=== PATIENT | male | born 1980 | race Hispanic/Latino ===

== ENCOUNTER 2018-10-13 18:18 | Emergency (ER) | payer SELFPAY ==
[~2018-10-13 18:18] MED LIST: Iopamidol 370 76% 100 ML VIAL ONE
[2018-10-13] MEDS ORDERED: Ondansetron PF 4 MG/2 ML Vial ONE (18:36)
[2018-10-13 18:48] LABS: #Basophils 0.1 thou/uL (0.0-0.2); #Lymphocytes 1.2 thou/uL (1.20-3.40); #Monocytes 1.2 thou/uL (0.11-0.59); #Neutrophils 14.9 thou/uL (1.40-6.50); %Basophils 0.5 % (0.0-1.0); %Eosinophils 0.1 % (0.0-10.0); %Lymphocytes 6.8 % (21.0-51.0); %Monocytes 6.9 % (0.0-10.0); %Neutrophils 85.8 % (42.0-75.0); Hemoglobin 18.6 g/dL (14.0-18.0); Mean Corpuscular HGB CONC 35.1 g/dL (32.0-36.0); Mean Corpuscular Hemoglobin 30.4 pg (27.0-31.0); Mean Corpuscular Volume 86.7 fL (78.0-98.0); Mean Platelet Volume 8.4 fL (7.4-10.4); Platelet Count 278 thou/uL (130-400); RBC Distribution Width 12.5 % (11.5-14.5); White Blood Cell (WBC) Count 17.4 thou/uL (4.8-10.8)
[2018-10-13 19:06] LABS: ALT (SGPT) 27 U/L (8-55); AST (SGOT) 20 U/L (5-34); Albumin 5.3 g/dL (3.5-5.0); Alkaline Phosphatase 82 U/L (40-150); Anion Gap 22 mmol/L (10-20); BUN (Urea Nitrogen) 14 mg/dL (8.9-20.6); Bilirubin, Total 0.8 mg/dL (0.2-1.2); Calc. Creatinine Clearance 0 mL/min (70-130); Calcium 10.7 mg/dL (7.8-10.44); Carbon Dioxide 25 mmol/L (22-29); Chloride 98 mmol/L (98-107); Estimated GFR-MDRD 61; Globulin 3.9 g/dL (2.4-3.5); Glucose 142 mg/dL (70-105); Potassium 3.4 mmol/L (3.5-5.1); Protein, Total 9.2 g/dL (6.0-8.3); Sodium 142 mmol/L (136-145)
[2018-10-13] MEDS ORDERED: Pantoprazole 40 MG VIAL ONE (19:41)
[2018-10-13 21:03] LABS: Bilirubin Negative (Negative); Blood, Urine Negative (Negative); Clarity CLEAR (Clear); Glucose, Urine (Dipstick) Negative (Negative); Leukocyte Negative (Negative); Nitrite Negative (Negative); Protein, Urine (Dipstick) 30 mg/dL (Neg-Trace); pH, Urine 8.5 (5.0-9.0)
[2018-10-13 21:04] LABS: Bacteria/HPF None Seen HPF (None Seen); Hyaline Casts/LPF 7-10 HYALINE CAST LPF (0-3 Hyaline); Pathc Cast-AUWi Flag 0.81 (0-2.49); RBC/HPF 0-3 HPF (0-3); Squamous Epithelial 0-3 HPF (0-3); WBC/HPF 0-3 HPF (0-3)
[2018-10-13 21:06] LABS: Specific Gravity, Urine Greater than 1.060 (1.002-1.036)
[2018-10-13 21:13] LABS: Amphetamine Detected (NotDetected); Barbiturates Screen Not Detected (NotDetected); Benzodiazepine Screen Not Detected (NotDetected); Cocaine Metabolite Screen Detected (NotDetected); Medtox Control Line Valid? VALID (VALID); Medtox Reader # READER 4; Methadone Not Detected (NotDetected); Methamphetamine Detected (NotDetected); Opiate Screen Not Detected (NotDetected); Oxycodone Screen Not Detected (NotDetected); Phencyclidine (PCP) Not Detected (NotDetected); THC/Cannabinoid Screen Not Detected (NotDetected); Tricyclic Screen Not Detected (NotDetected)
--- NOTE | 2018-10-14 09:31 | CT ---
CT CHEST 10/13/18 HISTORY: Sore throat, epigastric pain, nausea. TECHNIQUE: Axial CT imaging at 5 mm intervals from the thoracic inlet through the upper abdomen with IV contrast . Coronal reformatted imaging obtained. FINDINGS: No axillary, hilar, or mediastinal lymphadenopathy is seen. The imaged upper abdomen appears unremark able. There is a focal area of severe/marked wall thickening of the thoracic esophagus. This involves a 7-8 cm segment of the thoracic esophagus from the axial level of the gautam through the axial leve l of the distal esophagus just proximal to the gastroesophageal junction. There is no extraluminal gas. No significant pericardial, pleural or mediastinal fluid. There is prob able mild fluid adjacent to the inflamed segment of the mid thoracic and distal thoracic esophagus. There is no pneumothorax. The lung parenchyma appears grossly unremarkable. No acute osseous abnormality is seen. IMPRESSION: Severe area of esophageal wall thickening from the axial level of the gautam through the axial level of the distal esophagus just proximal to the gastroesophageal junction. Etiology is uncertain. Findin gs suggests inflammatory/infectious process of the esophagus. Malignancy cannot be excluded. GI consu ltation is advised. Recommend direct visualization via endoscopy when the patient is able. Code T POS: WALT
== END 2018-10-13 21:26 | disposition home or self-care (01) ==
LOC: ERS 18:18
DX: K20.9 Esophagitis, unspecified (principal); F17.200 Nicotine dependence, unspecified, uncomplicated; F19.10 Other psychoactive substance abuse, uncomplicated
CPT/HCPCS: 36415; 71260; 80053; 80306; 80307; 81003; 81015; 85025; 96361; 96374; 96375; C9113; J2405; Q9967

== ENCOUNTER 2018-12-05 15:19 | Emergency (ER) | payer SELFPAY ==
[2018-12-05 16:22] LABS: #Lymphocytes 1.2 thou/uL (1.20-3.40); #Monocytes 0.5 thou/uL (0.11-0.59); #Neutrophils 3.6 thou/uL (1.40-6.50); %Basophils 0.7 % (0.0-1.0); %Eosinophils 0.8 % (0.0-10.0); %Monocytes 9.8 % (0.0-10.0); %Neutrophils 66.7 % (42.0-75.0); Hemoglobin 15.8 g/dL (14.0-18.0); Mean Corpuscular HGB CONC 34.4 g/dL (32.0-36.0); Mean Corpuscular Hemoglobin 30.5 pg (27.0-31.0); Mean Corpuscular Volume 88.6 fL (78.0-98.0); Mean Platelet Volume 8.3 fL (7.4-10.4); Platelet Count 189 thou/uL (130-400); RBC Distribution Width 12.6 % (11.5-14.5); Red Blood Cell (RBC) Count 5.19 mill/uL (4.70-6.10); White Blood Cell (WBC) Count 5.3 thou/uL (4.8-10.8)
--- NOTE | 2018-12-05 16:31 | CT ---
Exam: Abdomen CT without contrast Pelvic CT without contrast HISTORY: Left costovertebral angle tenderness. COMPARISON: 02/11/2013 FINDINGS: Abdomen CT: Lung bases:Clear Heart size: Normal size. No significant pericardial fluid Aorta: Normal caliber Solid organs: Limited evaluation due to lack of IV contrast menstruation. Grossly no solid organ abno rmality Lymph nodes: No gastrohepatic, retrocrural or periportal lymphadenopathy Gallbladder: No evidence of cholelithiasis or cholecystitis Mesentery: No mass, lymphadenopathy, free air or free fluid Kidneys: Bilaterally, no hydronephrosis, nephrolithiasis or perinephric fat stranding. Bilateral uret ers have a normal caliber. No hydroureter, periureteral fat stranding or ureterolithiasis. Alimentary canal: Limited evaluation due to lack of oral contrast. No evidence of bowel obstruction. Ileocecal junction is normal. Hyperdense material in a normal caliber appendix, compatible with appendicoliths. No evidence of appendicitis. Fecal material in a nondistended, nondilated colon. Occa sional diverticulum sigmoid colon. No definite diverticulitis CT PELVIS: No mass, adenopathy, free air or free fluid. Urinary bladder: Unremarkable. Osseous structures: No lytic or blastic lesions. Stable spondylolisthesis and spondylolysis at the L5 -S1 level. IMPRESSION: 1. Bilaterally no obstructive uropathy. 2. Normal caliber appendix.
[2018-12-05] MEDS ORDERED: Ondansetron PF 4 MG/2 ML Vial ONE (16:36)
[2018-12-05] MEDS ORDERED: Ketorolac Tromethamine 30 MG/ML VIAL ONE (16:36)
[2018-12-05 16:46] LABS: ALT (SGPT) 25 U/L (8-55); AST (SGOT) 20 U/L (5-34); Albumin 4.6 g/dL (3.5-5.0); Alkaline Phosphatase 66 U/L (40-150); Anion Gap 13 mmol/L (10-20); BUN (Urea Nitrogen) 12 mg/dL (8.9-20.6); Bilirubin, Total 0.3 mg/dL (0.2-1.2); Calc. Creatinine Clearance 0 mL/min (70-130); Calcium 9.8 mg/dL (7.8-10.44); Carbon Dioxide 29 mmol/L (22-29); Chloride 104 mmol/L (98-107); Estimated GFR-MDRD 81; Globulin 3.4 g/dL (2.4-3.5); Glucose 96 mg/dL (70-105); Sodium 142 mmol/L (136-145)
[2018-12-05 17:22] LABS: Bilirubin Negative (Negative); Blood, Urine Negative (Negative); Clarity CLEAR (Clear); Glucose, Urine (Dipstick) Negative (Negative); Leukocyte Negative (Negative); Nitrite Negative (Negative); Protein, Urine (Dipstick) Trace mg/dL (Neg-Trace); Specific Gravity, Urine 1.028 (1.002-1.036)
== END 2018-12-05 18:13 | disposition home or self-care (01) ==
LOC: ERS 15:19
DX: K92.2 Gastrointestinal hemorrhage, unspecified (principal); M54.5 Low back pain; F17.210 Nicotine dependence, cigarettes, uncomplicated
CPT/HCPCS: 36415; 74176; 80053; 81003; 85025; 86850; 86900; 86901; 94760; 96374; 96375; J1885; J2405

== ENCOUNTER 2019-11-26 18:22 | Emergency (ER) | payer SELFPAY ==
[2019-11-26] MEDS ORDERED: Acetaminophen 500 MG TAB ONE (19:09)
[2019-11-26] MEDS ORDERED: Dexamethasone 4 MG TAB ONE (19:46)
== END 2019-11-26 19:52 | disposition home or self-care (01) ==
LOC: ERS 18:22
DX: J02.9 Acute pharyngitis, unspecified (principal); F17.210 Nicotine dependence, cigarettes, uncomplicated
CPT/HCPCS: 87081; 87430; 99283; J8540

== ENCOUNTER 2020-02-15 20:00 | Emergency (ER) | payer SELFPAY ==
[~2020-02-15 20:00] MED LIST changes: -Iopamidol 370 76% 100 ML VIAL ONE; +Iopamidol-370 76% 500 ML 1 ML ONE
[2020-02-15] MEDS ORDERED: Mag-Al 1200 mg/1200 mg/30 ML UDCUP ONE (20:14)
[2020-02-15] MEDS ORDERED: Lidocaine Viscous Sol 2% 15 ml UD Cup ONE (20:14)
[2020-02-15] MEDS ORDERED: Ondansetron PF 4 MG/2 ML Vial ONE (20:14)
[2020-02-15 20:33] LABS: #Lymphocytes 1.1 thou/uL (1.20-3.40); #Monocytes 1.1 thou/uL (0.11-0.59); #Neutrophils 11.8 thou/uL (1.40-6.50); %Basophils 0.1 % (0.0-1.0); %Eosinophils 0.1 % (0.0-10.0); %Lymphocytes 7.8 % (21.0-51.0); %Monocytes 7.6 % (0.0-10.0); %Neutrophils 84.4 % (42.0-75.0); Mean Corpuscular HGB CONC 34.8 g/dL (32.0-36.0); Mean Corpuscular Hemoglobin 30.6 pg (27.0-31.0); Mean Platelet Volume 8.6 fL (7.4-10.4); Platelet Count 230 thou/uL (130-400); RBC Distribution Width 12.8 % (11.5-14.5); Red Blood Cell (RBC) Count 5.53 mill/uL (4.70-6.10)
[2020-02-15 20:55] LABS: Albumin 5.1 g/dL (3.5-5.0); Alkaline Phosphatase 70 U/L (40-110); Anion Gap 16 mmol/L (10-20); BUN (Urea Nitrogen) 20 mg/dL (8.9-20.6); Bilirubin, Total 0.9 mg/dL (0.2-1.2); Calc. Creatinine Clearance 0 mL/min (70-130); Carbon Dioxide 24 mmol/L (22-29); Chloride 103 mmol/L (98-107); Estimated GFR-MDRD 68; Globulin 3.8 g/dL (2.4-3.5); Glucose 112 mg/dL (70-105); Potassium 3.7 mmol/L (3.5-5.1); Protein, Total 8.9 g/dL (6.0-8.3); Sodium 139 mmol/L (136-145)
[2020-02-15 20:56] LABS: ALT (SGPT) 28 U/L (8-55); AST (SGOT) 29 U/L (5-34); Lipase 13 U/L (8-78)
--- NOTE | 2020-02-15 21:36 | CT ---
CT abdomen and pelvis with IV contrast HISTORY: Abdomen pain. Vomiting. COMPARISON: 12/05/2018. FINDINGS: Lung bases are clear. The liver, spleen, kidneys, adrenal glands, and pancreas have a vladimir l CT appearance. No enlarged lymph nodes or free fluid. No evidence of bowel obstruction or inflammation. Incidental note of bilateral spondylolysis at the lumbosacral junction with grade 1 spondylolisthesis . IMPRESSION : No acute abnormalities are demonstrated.
[2020-02-15 21:41] LABS: Bilirubin Negative (Negative); Blood, Urine Negative (Negative); Clarity Clear (Clear); Glucose, Urine (Dipstick) Normal (Negative); Ketone, Urine 40 mg/dL (Negative); Leukocyte Negative Leu/uL (Negative); Mucous/LPF Rare LPF (<2+); Nitrite Negative (Negative); Protein, Urine (Dipstick) 70 mg/dL (Neg-Trace); RBC/HPF 0-3 HPF (0-3); Specific Gravity, Urine 1.029 (1.002-1.036); Squamous Epithelial 0-3 HPF (0-3)
[2020-02-15 21:45] LABS: Amphetamine Detected (NotDetected); Barbiturates Screen Not Detected (NotDetected); Benzodiazepine Screen Not Detected (NotDetected); Cocaine Metabolite Screen Detected (NotDetected); Medtox Control Line Valid? VALID (VALID); Medtox Reader # READER 4; Methadone Not Detected (NotDetected); Methamphetamine Detected (NotDetected); Opiate Screen Not Detected (NotDetected); Oxycodone Screen Not Detected (NotDetected); Phencyclidine (PCP) Not Detected (NotDetected); THC/Cannabinoid Screen Not Detected (NotDetected); Tricyclic Screen Not Detected (NotDetected)
[2020-02-15 21:50] LABS: Bacteria/HPF Rare-Few HPF (None Seen); Sperm/HPF Rare HPF (None Seen)
== END 2020-02-15 22:48 | disposition home or self-care (01) ==
LOC: ERS 20:00
DX: F19.10 Other psychoactive substance abuse, uncomplicated (principal); R10.13 Epigastric pain; R11.2 Nausea with vomiting, unspecified; F17.210 Nicotine dependence, cigarettes, uncomplicated; F14.10 Cocaine abuse, uncomplicated
CPT/HCPCS: 74177; 80053; 80306; 81003; 81015; 83690; 85025; 96361; 96374; J2405; Q9967